=== PATIENT | male | born 1990 | race Caucasian/White ===

== ENCOUNTER 2020-01-20 21:14 | Emergency (ER) | payer OTHER, SELFPAY ==
[~2020-01-20] VITALS: Ht 203.2 cm; Wt 188.8 kg
[2020-01-20] MEDS ORDERED: SODIUM CHLORIDE FLUSH 10ML SYR IVF ONE (22:00)
[2020-01-20] MEDS ORDERED: PROPOFOL 10 MG/ML, 20ML ONE (22:18)
--- NOTE | 2020-01-20 22:20 | NUR ---
ASSUMED PATIENT CARE FOR CONSCIOUS SEDATION. PATIENT MOVED TO TRAUMA 2 FOR PROCEDURE. GI TEAM AT BEDSIDE WITH PATIENT.
[2020-01-20] MEDS ORDERED: PROPOFOL 10 MG/ML, 20ML IVPush ONE (22:30)
--- NOTE | 2020-01-20 22:30 | NUR ---
PROCEDURAL SEDATION START TIME. SEE PROCEDURAL SEDATION PACKET FOR ADDITIONAL CHARTING.
[2020-01-20] MEDS ORDERED: ONDANSETRON 2MG/ML, 2ML ONE (22:34)
--- NOTE | 2020-01-20 22:40 | NUR ---
PROCEDURE/CONSCIOUS SEDATION STOP TIME AT 2240. SEE PROCEDURAL SEDATION PACKET FOR INFROMATION.
--- NOTE | 2020-01-20 23:40 | NUR ---
PATIENT PO CHALLENGING, TOLERATING FLUIDS WELL. PATIENT AND VERBALIZED UNDERSTANDING OF SELF CARE AND FOLLOW UP CARE AT HOME. NO NOTED ACUTE DISTRESS. VITAL SIGNS STABLE. WILL DISCUSS DISCHARGE PLAN WITH PROVIDER.
--- NOTE | 2020-01-20 23:53 | NUR ---
PATIENT CLEARED FOR DISCHARGE. NO NOTED ACUTE DISTRESS, VITAL SIGNS STABLE. PATIENT AMBULATORY TO DISCHARGE DESK. PATIENT ACCOMPANIED BY . SEE CONSCIOUS SEDATION PACKET FOR ADDITIONAL CHARTING.
[2020-01-21 00:04] VITALS: BP 114/62
== END 2020-01-21 00:06 | disposition home or self-care (01) ==
LOC: ED 21:26
DX: T18.128A Food in esophagus causing other injury, initial encounter (principal); R07.89 Other chest pain; F17.200 Nicotine dependence, unspecified, uncomplicated; X58.XXXA Exposure to other specified factors, initial encounter; Y93.89 Activity, other specified; Y92.89 Other specified places as the place of occurrence of the external cause; Y99.8 Other external cause status
CPT/HCPCS: 43247; 99152; 99285; J2704

== ENCOUNTER 2020-04-28 06:39 | Day surgery (SDC) | payer OTHER ==
[~2020-04-28] VITALS: Ht 203.2 cm; Wt 192.0 kg
[2020-04-28] MEDS ORDERED: CHLORHEXIDINE 15 ML UDC MM ONE (07:00)
[2020-04-28] MEDS ORDERED: LACTATED RINGERS 1,000 ML IV SCH (07:00)
[2020-04-28 07:01] VITALS: BP 126/82
[2020-04-28] MEDS ORDERED: OMEP-110 PO (07:10)
[2020-04-28] MEDS ORDERED: PROPOFOL 50 ML ONE ×2 (08:59→09:14)
[2020-04-28] MEDS ORDERED: METOCLOPRAMIDE 5 MG/ML, 2ML ONE (09:00)
[2020-04-28] MEDS ORDERED: ACETAMINOPHEN 325 MG TABLET PO PRN (09:00)
[2020-04-28] MEDS ORDERED: ONDANSETRON 2MG/ML, 2ML IVPush PRN (09:00)
[2020-04-28] MEDS ORDERED: FENTANYL PF 100 MCG/2ML IV PRN (09:00)
== END 2020-04-28 10:30 | disposition home or self-care (01) ==
LOC: OUT 06:39
PROVIDERS: ATTEND Internal Medicine Gastroenterology
DX: R13.19 Other dysphagia (principal); Z20.828 Contact with and (suspected) exposure to other viral communicable diseases; K22.2 Esophageal obstruction; K21.9 Gastro-esophageal reflux disease without esophagitis; K44.9 Diaphragmatic hernia without obstruction or gangrene; E66.01 Morbid (severe) obesity due to excess calories; Z79.899 Other long term (current) drug therapy; Z88.0 Allergy status to penicillin
CPT/HCPCS: 43239; 43248; 87635; 88305; J2704; J2765; J7120